=== PATIENT | female | born 1960 | race African-American/Black ===

== ENCOUNTER 2019-06-18 | Emergency (ER) | payer OTHER ==
[~2019-06-18] MED LIST: AMBIEN CR12.5 MG PO; BACTRIM DS1 TAB PO; BACTROBAN2 % EX; KLONOPIN1 MG PO; LOSARTAN POT100 MG PO; MAXZIDE-2537.5 MG/TA PO; MELOXICAM7.5 MG PO; MICARDIS HC1 PO; NEURONTIN300 MG PO; NICOTINE T21 MG/241 TD; NO MEDS; PREDNISONE20 MG PO; PROZAC20 M1 PO; SYMBICORT1 AE1 IN; VENTOLIN HFA IN; ZITHROMAX500 MG PO
[2019-06-18 01:34] LABS: HEMOGLOBIN 11.8 g/dl (12.0-16.0); IMMATURE GRANULOCYTES 0.2 % (0.0-5.0); MEAN CELL VOLUME 84.9 fL CALC (80.0-100.0); MEAN CORPUSCULAR HGB 27.8 pG CALC (26.0-32.0); MEAN CORPUSCULAR HGB CONC 32.7 g/L CALC (32.0-36.0); NEUT# 2.5 thou/uL (2.00-7.15); RED BLOOD COUNT 4.25 mill/uL (4.20-5.60); RED CELL DISTRI WIDTH 14.7 % (11.5-15.5)
[2019-06-18 01:35] LABS: HEMATOCRIT 36.1 % (37.0-47.0)
[2019-06-18 02:01] LABS: ALBUMIN 4.1 g/dL (3.2-5.0); AMYLASE 59 u/l (30-110); BUN 12 mg/dL (7-17); BUN/CREATININE RATIO 12 (12-20 (CALC)); CHLORIDE 107 mmol/l (95-108); GFR 57 ML/MIN (>=60 (CALC)); GFR FOR AFR.AMER. > 60 ML/MIN (>=60 (CALC)); LIPASE 80 u/l (23-300); POTASSIUM 3.9 mmol/l (3.5-5.1); SODIUM 140 mmol/l (137-146); TOTAL PROTEIN 7.6 g/dL (6.3-8.2)
[2019-06-18 02:04] LABS: ACT PARTIAL THROMBO TIME 26.1 SECONDS (20.0-32.5); D-DIMER 0.29 mg/L (0.19-0.60); PROTHROMBIN TIME 10.9 SECONDS (9.0-12.5)
[2019-06-18 02:06] LABS: ALKALINE PHOSPHATASE 123 u/l (38-126); ANION GAP 10 (6-22 (CALC)); BILIRUBIN, TOTAL 0.3 mg/dL (0.0-1.4); CARBON DIOXIDE 27 mmol/l (22-30); SGOT/AST 24 u/l (14-36)
[2019-06-18 02:13] LABS: MYOGLOBIN 80 ng/mL (0 - 62)
[2019-06-18 02:59] LABS: ETHYL ALCOHOL 0 mg/dl (0-30)
[2019-06-18 05:31] LABS: URINE BILIRUBIN - DIPSTICK NEGATIVE (NEGATIVE); URINE BLOOD DIPSTICK NEGATIVE (NEGATIVE); URINE COLOR YELLOW; URINE GLUCOSE - DIPSTICK NEGATIVE (NEGATIVE); URINE KETONE NEGATIVE (NEGATIVE); URINE LEUK ESTERASE NEGATIVE (NEGATIVE); URINE NITRITE - DIPSTICK NEGATIVE (Negative); URINE PH 6.5 (4.5-8.0); URINE PROTEIN - DIPSTICK NEGATIVE (NEG-TRACE); URINE UROBILINOGEN - DIPSTICK 0.2 E.U./dL (0.2)
[2019-06-18 05:34] LABS: COCAINE NEGATIVE (NEGATIVE); METHADONE NEGATIVE (NEGATIVE); TETRAHYDROCANNABIONOL NEGATIVE (NEGATIVE)
[2019-06-18 05:35] LABS: BARBITURATES NEGATIVE (NEGATIVE); OXCYCODONE POSITIVE (NEGATIVE); TRICYLIC ANTIDEPRESSANTS NEGATIVE (NEGATIVE)
[2019-06-23] MEDS ORDERED: MICARDIS40 MG PO (08:38)
== END 2019-06-18 06:06 | disposition designated cancer center or children's hospital (05) | DRG 313 ==
PROVIDERS: Family Medicine
DX: R07.9 Chest pain, unspecified (principal); R45.851 Suicidal ideations; F19.10 Other psychoactive substance abuse, uncomplicated; I10 Essential (primary) hypertension; F17.200 Nicotine dependence, unspecified, uncomplicated

== ENCOUNTER 2021-01-07 10:01 | Emergency (ER) | payer SELFPAY ==
[~2021-01-07] VITALS: Ht 149.9 cm; Wt 90.9 kg
[~2021-01-07 10:01] MED LIST changes: +MICARDIS40 MG PO
[2021-01-07 11:11] LABS: HEMATOCRIT 32.7 % (37.0-47.0); IMMATURE GRANULOCYTES 0.9 % (0.0-5.0); MEAN CORPUSCULAR HGB 28.3 pG CALC (26.0-32.0); MEAN CORPUSCULAR HGB CONC 30.6 g/dL CAL (32.0-36.0); NEUT# 9.1 thou/uL (2.00-7.15); RED BLOOD COUNT 3.53 mill/uL (4.20-5.60)
[2021-01-07 11:15] LABS: MEAN CELL VOLUME 92.6 fL CALC (80.0-100.0)
[2021-01-07 11:32] LABS: ALBUMIN 3.5 g/dL (3.2-5.0); ANION GAP 10 (6-22 (CALC)); BUN 13 mg/dL (8-23); BUN/CREATININE RATIO 13 (12-20 (CALC)); CARBON DIOXIDE 24 mmol/l (22-30); CHLORIDE 111 mmol/l (95-108); GFR 56 ML/MIN (>=60 (CALC)); GFR FOR AFR.AMER. > 60 ML/MIN (>=60 (CALC)); POTASSIUM 3.9 mmol/l (3.5-5.1); SODIUM 141 mmol/l (137-146); TOTAL PROTEIN 7.8 g/dL (6.3-8.2)
[2021-01-07 11:34] LABS: ALKALINE PHOSPHATASE 404 u/l (38-126); BILIRUBIN, TOTAL 0.8 mg/dL (0.0-1.4); SGOT/AST 127 u/l (9-36)
[2021-01-07 14:45] VITALS: BP 154/73
--- NOTE | 2021-01-09 07:32 | NUR ---
PRELIM BLOOD CX SHOWS GRAM POSITIVE COCCI IN 3/4 VIALS. PT WAS TRANSFERRED TO [facility]. REPORTED RESULTS TO PTS NURSE ALISON AND FAXED TO [phone]
== END 2021-01-07 15:00 | disposition short-term general hospital (02) | DRG 177 ==
LOC: ED 10:01
PROVIDERS: Family Medicine
PROC: 02HV33Z Insertion of Infusion Device into Superior Vena Cava, Percutaneous Approach (ICD-10-PCS; principal; 2021-01-07)
PROC: B518ZZA Fluoroscopy of Superior Vena Cava, Guidance (ICD-10-PCS; 2021-01-07)
DX: U07.1 COVID-19 (principal); J12.82 Pneumonia due to coronavirus disease 2019; R04.2 Hemoptysis; Z68.41 Body mass index [BMI] 40.0-44.9, adult; R74.01 Elevation of levels of liver transaminase levels; R91.8 Other nonspecific abnormal finding of lung field; I10 Essential (primary) hypertension; E66.9 Obesity, unspecified; F17.200 Nicotine dependence, unspecified, uncomplicated
CPT/HCPCS: Q9967

== ENCOUNTER 2022-06-26 14:14 | Emergency (ER) | payer OTHER ==
[2022-06-26] VITALS (10 sets, daily range): BP systolic 98–148; BP diastolic 51–86
[~2022-06-26] VITALS: Ht 149.9 cm; Wt 90.7 kg
[2022-06-26 14:58] LABS: BASO% 0.5 % (0-3); EOS% 1.7 % (0-8); HEMATOCRIT 40.2 % (37.0-47.0); IMMATURE GRANULOCYTES 0.3 % (0.0-5.0); LYMPH% 33.2 % (15-41); MEAN CORPUSCULAR HGB 27.1 pG CALC (26.0-32.0); MEAN CORPUSCULAR HGB CONC 31.8 g/dL CAL (32.0-36.0); MONO% 6.4 % (2-13); NEUT# 5.39 thou/uL (2.00-7.15); NEUT% 57.9 % (42-76); RED BLOOD COUNT 4.73 mill/uL (4.20-5.60); RED CELL DISTRI WIDTH 14.2 % (11.5-15.5)
[2022-06-26 15:00] LABS: HEMOGLOBIN 12.8 g/dl (12.0-16.0)
[2022-06-26 16:07] LABS: ALKALINE PHOSPHATASE 256 u/l (38-126); BILIRUBIN, TOTAL 0.5 mg/dL (0.02-1.3); BUN 18 mg/dL (8-23); BUN/CREATININE RATIO 15 (12-20 (CALC)); CHLORIDE 107 mmol/l (95-108); CREATININE 1.2 mg/dL (0.5-1.0); GFR FOR AFR.AMER. 55 ML/MIN (>=60 (CALC)); GFR OTHER RACES 45 ML/MIN (>=60 (CALC)); POTASSIUM 3.4 mmol/l (3.5-5.1); SGOT/AST 41 u/l (9-36); SODIUM 141 mmol/l (137-146)
[2022-06-26 16:11] LABS: ANION GAP 19 (6-22 (CALC)); CARBON DIOXIDE 18 mmol/l (22-30); TOTAL PROTEIN 10.1 g/dL (6.3-8.2)
[2022-06-26 17:35] LABS: URINE BILIRUBIN - DIPSTICK NEGATIVE (NEGATIVE); URINE BLOOD DIPSTICK NEGATIVE (NEGATIVE); URINE COLOR YELLOW; URINE GLUCOSE - DIPSTICK NEGATIVE (NEGATIVE); URINE KETONE NEGATIVE (NEGATIVE); URINE LEUK ESTERASE NEGATIVE (NEGATIVE); URINE PH 5.5 (4.5-8.0); URINE PROTEIN - DIPSTICK 100 mg/dL (NEG-TRACE); URINE SPECIFIC GRAVITY >=1.030; URINE UROBILINOGEN - DIPSTICK 0.2 E.U./dL (0.2)
[2022-06-26 17:40] LABS: URINE NITRITE - DIPSTICK NEGATIVE (Negative)
[2022-06-26 17:54] LABS: URINE AMORPH SEDIMENT FEW hpf (NONE-FEW); URINE RBC 0-2 RBC/hpf (0-5); URINE SQUAMOUS EPITHELIAL CELL FEW EPI/hpf (0-FEW); URINE WBC 0-2 WBC/hpf (0-5)
== END 2022-06-26 21:20 | disposition short-term general hospital (02) ==
LOC: ED 14:14
PROVIDERS: Family Medicine
DX: R56.9 Unspecified convulsions (principal); S01.311A Laceration without foreign body of right ear, initial encounter; I10 Essential (primary) hypertension; F32.A Depression, unspecified; X58.XXXA Exposure to other specified factors, initial encounter
CPT/HCPCS: J1953

== ENCOUNTER 2022-07-13 04:17 | Observation (INO) | payer OTHER ==
[2022-07-13] VITALS (34 sets, daily range): BP systolic 99–161; BP diastolic 32–105
[~2022-07-13] VITALS: Ht 149.9 cm; Wt 81.6 kg
--- NOTE | 2022-07-13 04:17 | NUR ---
PT ARRIVED VIA EMS IN ROOM 12 FOR TRIAGE. PT IS HYPERVERBAL, TALKING EXCESSIVELY AND IS NOT MAKING SENSE.
[2022-07-13 04:53] LABS: BASO% 0.5 % (0-3); EOS% 3.3 % (0-8); HEMATOCRIT 30.8 % (37.0-47.0); HEMOGLOBIN 9.9 g/dl (12.0-16.0); IMMATURE GRANULOCYTES 0.7 % (0.0-5.0); MEAN CELL VOLUME 85.1 fL CALC (80.0-100.0); MEAN CORPUSCULAR HGB 27.3 pG CALC (26.0-32.0); MEAN CORPUSCULAR HGB CONC 32.1 g/dL CAL (32.0-36.0); MONO% 10.1 % (2-13); NEUT# 4.45 thou/uL (2.00-7.15); NEUT% 48.4 % (42-76); RED BLOOD COUNT 3.62 mill/uL (4.20-5.60); RED CELL DISTRI WIDTH 13.9 % (11.5-15.5)
[2022-07-13 05:02] LABS: BUN 17 mg/dL (8-23); BUN/CREATININE RATIO 13 (12-20 (CALC)); CHLORIDE 106 mmol/l (95-108); CREATININE 1.3 mg/dL (0.5-1.0); GFR FOR AFR.AMER. 50 ML/MIN (>=60 (CALC)); GFR OTHER RACES 41 ML/MIN (>=60 (CALC)); SGOT/AST 36 u/l (9-36); SODIUM 140 mmol/l (137-146)
[2022-07-13 05:06] LABS: ALBUMIN 3.8 g/dL (3.2-5.0); ALKALINE PHOSPHATASE 121 u/l (38-126); ANION GAP 11 (6-22 (CALC)); CARBON DIOXIDE 28 mmol/l (22-30); POTASSIUM 4.8 mmol/l (3.5-5.1); TOTAL PROTEIN 7.4 g/dL (6.3-8.2)
--- NOTE | 2022-07-13 05:15 | NUR ---
PT IN ROOM TALKING TO HER SELF. PT IS LOUD AND MAKING INAPPROPRIATE STATEMENTS. HER DOOR IS CLOSED HOWEVER SHE IS HEARD OUTSIDE HER DOOR. VSS, NAD
--- NOTE | 2022-07-13 06:09 | NUR ---
PT IN ROOM LAYING ON HER SIDE. TALKING TO HERSELF AND IS LOUD. NO CONCERNS AT THIS TIME.
--- NOTE | 2022-07-13 11:02 | NUR ---
pt sleeping, no distress
--- NOTE | 2022-07-13 12:47 | NUR ---
pt resting no distress
[2022-07-13] MEDS ORDERED: LIPITOR20 MG PO (14:51)
[2022-07-13] MEDS ORDERED: AMLODIPINE BESYL5 MG PO (14:51)
[2022-07-13] MEDS ORDERED: HYDROXYZ HCL25 MG PO (14:52)
[2022-07-13] MEDS ORDERED: ZOLPIDEM10 MG PO (14:54)
[2022-07-13] MEDS ORDERED: ACYCLOVIR400 MG PO (14:54)
--- NOTE | 2022-07-13 15:06 | NUR ---
pt sleeping no distress
--- NOTE | 2022-07-13 16:37 | NUR ---
pt sleeping, no distress. report called to med surg, all questions anwsered at this time
--- NOTE | 2022-07-13 19:30 | NUR ---
PT RESTING IN BED WATCHING TV, NO SIGNS OF DISTRESS NOTED, RESP EVEN AND UNLABORED. PT ALERT AND ORIENTED X3, CONVERSING WITH PT NOTED SHE HAS FLIGHT OF IDEAS, FOURDRINIER MACHINE TENDER DOES NOT REQUIRE MUCH INTERACTION PT CONTINUES CONVERSING ABOUT WORK, SCHOOL, FAMILY, RETIRMENT, GRANDKIDS, IDENTITY THEFT, RECENT HOSPITALIZATION. PT STATES SHE IS "WITHDRAWING" FROM TAKING HER KLONOPIN. UNABLE TO UNDERSTAND PT TIMELINE. PT STATES SHE WAS AT [facility] LAST MONTH FOR A SEIZURE BUT PT STATES SHE NEVER HAD A SEIZURE. MD NOTIFIED OF PT REQUESTS TO CONTINUE HOME MEDICATIONS. DISCUSSED WITH PT, VERBALIZED UNDERSTANDING. BED ALARM FOR SAFETY, IV FLUSHED WELL. ASSESSEMNT COMPLETED, CALL LIGHT IN REACH,CONTINUE TO MONITOR.
--- NOTE | 2022-07-13 21:10 | NUR ---
PT RESTING IN BED, MEDICATED PER MAR, NO SIGNS OF DISTRESS NOTED, RESP EVEN AND UNLABORED. CALL LIGHT IN REACH, CONTINUE TO MONITOR.
--- NOTE | 2022-07-14 | NUR ---
PT RESTING IN BED WITH EYES CLOSED, NO SIGNS OF DISTRESS NOTED, RESP EVEN AND UNLABORED. CALL LIGHT IN REACH,CONTINUE TO MONITOR.
[2022-07-14 00:23] VITALS: BP 119/54
--- NOTE | 2022-07-14 04:00 | NUR ---
PT RESTING IN BED WITH EYES CLOSED, NO SIGNS OF DISTRESS NOTED, RESP EVEN AND UNLABORED. CALL LIGHT IN REACH,CONTINUE TO MONITOR.
[2022-07-14 04:59] VITALS: BP 156/48
[2022-07-14 06:08] LABS: CHOLESTEROL HDL RATIO 2.7 (<4.4 (CALC)); MAGNESIUM 1.9 mg/dL (1.6-2.3)
[2022-07-14 06:51] VITALS: BP 145/66
[2022-07-14] MEDS ORDERED: TAM75CAP PO (16:11)
--- NOTE | 2022-07-14 18:03 | NUR ---
PT TELE MONITOR AND IV REMOVED.PT DISCHARED WITH INSTRUCTIONS AND BELONGINGS.
== END 2022-07-14 17:49 | disposition home or self-care (01) ==
LOC: ED 04:17 → ED-I 08:05 → ED 08:16 → MS2 08:17 → ED-I 08:17 → MS2 15:52
PROVIDERS: Emergency Medicine; ADMIT Internal Medicine; ATTEND Internal Medicine
DX: R07.9 Chest pain, unspecified (principal); J10.1 Influenza due to other identified influenza virus with other respiratory manifestations; F31.9 Bipolar disorder, unspecified; I10 Essential (primary) hypertension; E66.9 Obesity, unspecified; D64.9 Anemia, unspecified; F17.200 Nicotine dependence, unspecified, uncomplicated; Z20.822 Contact with and (suspected) exposure to COVID-19
CPT/HCPCS: J1650

== ENCOUNTER 2022-07-21 21:22 | Emergency (ER) | payer OTHER ==
[~2022-07-21] VITALS: Ht 149.9 cm; Wt 97.0 kg
[~2022-07-21 21:22] MED LIST changes: +ACYCLOVIR400 MG PO; +AMLODIPINE BESYL5 MG PO; +HYDROXYZ HCL25 MG PO; +LIPITOR20 MG PO; +TAM75CAP PO; +ZOLPIDEM10 MG PO
[2022-07-21 22:14] LABS: URINE BLOOD DIPSTICK NEGATIVE (NEGATIVE); URINE COLOR YELLOW; URINE GLUCOSE - DIPSTICK NEGATIVE (NEGATIVE); URINE KETONE TRACE mg/dL (NEGATIVE); URINE LEUK ESTERASE NEGATIVE (NEGATIVE); URINE PROTEIN - DIPSTICK TRACE mg/dL (NEG-TRACE); URINE SPECIFIC GRAVITY 1.025; URINE UROBILINOGEN - DIPSTICK 0.2 E.U./dL (0.2)
[2022-07-21 22:16] LABS: BASO% 0.4 % (0-3); HEMATOCRIT 33.1 % (37.0-47.0); HEMOGLOBIN 10.5 g/dl (12.0-16.0); IMMATURE GRANULOCYTES 0.1 % (0.0-5.0); LYMPH% 34.6 % (15-41); MEAN CELL VOLUME 87.1 fL CALC (80.0-100.0); MEAN CORPUSCULAR HGB 27.6 pG CALC (26.0-32.0); MEAN CORPUSCULAR HGB CONC 31.7 g/dL CAL (32.0-36.0); MONO% 7.6 % (2-13); NEUT# 4.29 thou/uL (2.00-7.15); NEUT% 54.3 % (42-76); RED BLOOD COUNT 3.8 mill/uL (4.20-5.60)
[2022-07-21 22:18] LABS: URINE BILIRUBIN - DIPSTICK SMALL (NEGATIVE); URINE NITRITE - DIPSTICK NEGATIVE (Negative)
[2022-07-21 22:26] LABS: ALBUMIN 4.4 g/dL (3.2-5.0); BUN 12 mg/dL (8-23); BUN/CREATININE RATIO 10 (12-20 (CALC)); CHLORIDE 110 mmol/l (95-108); CREATININE 1.1 mg/dL (0.5-1.0); ETHYL ALCOHOL 0 mg/dl (0-30); GFR FOR AFR.AMER. > 60 ML/MIN (>=60 (CALC)); GFR OTHER RACES 50 ML/MIN (>=60 (CALC)); SGOT/AST 63 u/l (9-36); SODIUM 140 mmol/l (137-146); TOTAL PROTEIN 8.2 g/dL (6.3-8.2)
[2022-07-21 22:31] LABS: ALKALINE PHOSPHATASE 257 u/l (38-126); ANION GAP 15 (6-22 (CALC)); BILIRUBIN, TOTAL 0.8 mg/dL (0.02-1.3); CARBON DIOXIDE 19 mmol/l (22-30); POTASSIUM 3.5 mmol/l (3.5-5.1)
[2022-07-22] VITALS (17 sets, daily range): BP systolic 86–146; BP diastolic 50–88
[2022-07-22] MEDS ORDERED: TAM75CAP PO (05:55)
== END 2022-07-22 08:48 | disposition home or self-care (01) | DRG 897 ==
LOC: ED 21:22
PROVIDERS: Emergency Medicine
DX: F19.10 Other psychoactive substance abuse, uncomplicated (principal); F31.9 Bipolar disorder, unspecified; R74.8 Abnormal levels of other serum enzymes; J11.1 Influenza due to unidentified influenza virus with other respiratory manifestations; I10 Essential (primary) hypertension; Z20.822 Contact with and (suspected) exposure to COVID-19
CPT/HCPCS: J2060; S0166

== ENCOUNTER 2022-07-23 08:06 | Emergency (ER) | payer OTHER ==
[2022-07-23] VITALS (30 sets, daily range): BP systolic 109–181; BP diastolic 67–109
[~2022-07-23] VITALS: Ht 149.9 cm; Wt 97.0 kg
[2022-07-23 08:43] LABS: BASO% 0.4 % (0-3); EOS% 1.5 % (0-8); HEMATOCRIT 32.1 % (37.0-47.0); IMMATURE GRANULOCYTES 0.2 % (0.0-5.0); LYMPH% 24.2 % (15-41); MEAN CELL VOLUME 87.7 fL CALC (80.0-100.0); MEAN CORPUSCULAR HGB 27.3 pG CALC (26.0-32.0); MEAN CORPUSCULAR HGB CONC 31.2 g/dL CAL (32.0-36.0); MONO% 5.9 % (2-13); NEUT# 6.67 thou/uL (2.00-7.15); NEUT% 67.8 % (42-76); RED BLOOD COUNT 3.66 mill/uL (4.20-5.60); RED CELL DISTRI WIDTH 15.3 % (11.5-15.5)
[2022-07-23 08:52] LABS: ALBUMIN 4.2 g/dL (3.2-5.0); ALKALINE PHOSPHATASE 299 u/l (38-126); ANION GAP 18 (6-22 (CALC)); BUN 19 mg/dL (8-23); BUN/CREATININE RATIO 15 (12-20 (CALC)); CARBON DIOXIDE 19 mmol/l (22-30); CHLORIDE 110 mmol/l (95-108); CREATININE 1.3 mg/dL (0.5-1.0); ETHYL ALCOHOL 0 mg/dl (0-30); GFR FOR AFR.AMER. 50 ML/MIN (>=60 (CALC)); GFR OTHER RACES 41 ML/MIN (>=60 (CALC)); POTASSIUM 3.8 mmol/l (3.5-5.1); SGOT/AST 85 u/l (9-36); SODIUM 143 mmol/l (137-146); TOTAL PROTEIN 7.6 g/dL (6.3-8.2)
[2022-07-23 08:57] LABS: BILIRUBIN, TOTAL 0.3 mg/dL (0.02-1.3)
[2022-07-23 09:55] LABS: URINE BILIRUBIN - DIPSTICK NEGATIVE (NEGATIVE); URINE BLOOD DIPSTICK NEGATIVE (NEGATIVE); URINE COLOR YELLOW; URINE GLUCOSE - DIPSTICK NEGATIVE (NEGATIVE); URINE KETONE TRACE mg/dL (NEGATIVE); URINE LEUK ESTERASE NEGATIVE (NEGATIVE); URINE PH 6.5 (4.5-8.0); URINE PROTEIN - DIPSTICK NEGATIVE (NEG-TRACE); URINE SPECIFIC GRAVITY 1.015; URINE UROBILINOGEN - DIPSTICK 0.2 E.U./dL (0.2)
[2022-07-23 09:57] LABS: URINE NITRITE - DIPSTICK NEGATIVE (Negative)
== END 2022-07-23 17:11 | DRG 885 ==
LOC: ED 08:06
PROVIDERS: Family Medicine
DX: F22 Delusional disorders (principal); I10 Essential (primary) hypertension; Z78.1 Physical restraint status
CPT/HCPCS: J2060

== ENCOUNTER 2023-11-08 23:46 | Inpatient (IN) | payer MEDICARE ==
[~2023-11-08] VITALS: Ht 149.9 cm; Wt 96.1 kg
[~2023-11-08 23:46] MED LIST changes: +KLONOPIN0.5 MG PO; -KLONOPIN1 MG PO; +LATUDA40 MG PO; -MICARDIS40 MG PO; +PROZAC10 MG PO; -PROZAC20 M1 PO; +VENTOLIN HFA108 MCG IN
[2023-11-08 23:53] VITALS: BP 169/94
[2023-11-09] VITALS (59 sets, daily range): BP systolic 136–203; BP diastolic 69–111
[2023-11-09 00:22] LABS: BASO% 0.4 % (0-3); EOS% 0.6 % (0-8); HEMATOCRIT 43.4 % (37.0-47.0); IMMATURE GRANULOCYTES 0.7 % (0.0-5.0); MEAN CELL VOLUME 86.8 fL CALC (80.0-100.0); MEAN CORPUSCULAR HGB 28.2 pG CALC (26.0-32.0); MEAN CORPUSCULAR HGB CONC 32.5 g/dL CAL (32.0-36.0); MONO% 6.1 % (2-13); NEUT# 5.97 thou/uL (2.00-7.15); NEUT% 66.2 % (42-76)
[2023-11-09 00:28] LABS: HEMOGLOBIN 14.1 g/dl (12.0-16.0)
[2023-11-09 00:51] LABS: ALKALINE PHOSPHATASE 241 u/l (38-126); BILIRUBIN, TOTAL 0.7 mg/dL (0.02-1.3); BUN 16 mg/dL (8-23); BUN/CREATININE RATIO 14 (12-20 (CALC)); CARBON DIOXIDE 24 mmol/l (22-30); CHLORIDE 106 mmol/l (95-108); CREATININE 1.2 mg/dL (0.5-1.0); ESTIMATED GFR 51 ML/MIN (>=90 (CALC)); LIPASE 426 u/l (23-300); SODIUM 141 mmol/l (137-146); TOTAL PROTEIN 9.7 g/dL (6.3-8.2)
[2023-11-09 00:54] LABS: ALBUMIN 4.9 g/dL (3.2-5.0); ANION GAP 14 (6-22 (CALC)); POTASSIUM 3.3 mmol/l (3.5-5.1); SGOT/AST 54 u/l (9-36)
--- NOTE | 2023-11-09 01:35 | NUR ---
@2349- PT ARRIVES TO RM#8 VIA EMS, EMS REPORTS PT HESITANT TO SPEAK, STROKE ASSESSMENT NEGATIVE FOR THEM, STATES REPORTED CALL FOR HTN/DIZZINESS. INTERNAL AUDIT SENIOR MANAGER AT BEDSIDE FOR ASSESSMENT OF PT, PT NOTED WITH SEVERE ASPHASIA AND AMS, EMS UNABLE TO VERBALIZEPT BASELINE/LKW, PT VOICESDIZZINESS/HEADACHE AT THIS TIME, PT IS POOR HISTORIAN. @2353- CVA PROTOCOL INITIATED DUE TO PT AMS, COMPLAINTS AND SEVERE ASPHASIA WITH GENERALIZED WEAKNESS. INTERNAL AUDIT SENIOR MANAGER TRANSPORTED PT TO CT AT THIS TIME PER CVA PROTOCOL. @0005- PT CMP CT BRAIN W/O CONTRAST, TELENUEROLOGIST CONNECTED WITH PT AT THIS TIME, PT REMAINS WITH SEVERE ASPHASIA AND GENERALIZED WEAKNESS, PT A&OX 1 AT THIS TIME TO SELF, PT WAS UNABLE TO IDENTIFY SITUATION, TIME, AND PLACE, PT ALSO UNABLE TO IDENTIFY OBJECTS. PT IS POOR HISTORIAN, LKW UNOBTAINABLE. @0010- TELENUROLOGIST COMPLETE, VOICES WILL SPEAK TO ED MD. @0012- LABS OBTAINED, INTERNAL AUDIT SENIOR MANAGER/ADDITIONAL STAFF ATTEMPTING IV PLACEMENT AT THIS TIME. @0059- ED MD NOTIFIED DUE TO SEVERAL STAFF ATTEMPTING IV WITHOUT SUCCESS, CTA NOT PERFORMED, MD VERBALIZES TO RETURN PT AND WILL ATTEMPT PLACEMENT ONCE RETURNED. @0100- PT RETURNED FROM CT, PT UPDATED ON CONTINUOUS PLAN OF CARE JILLIAN CONTINUAL REASSESSMENTS, PT REMAINS WITH ASPHASIA AND GENERALIZED BILATERAL LEG WEAKNESS. @0113- ER MD AT BEDSIDE FOR INITIAL EVALUATION, PT VERBALIZES TO MD SITUATIONOF "I THOUGHT I WAS HAVING A STROKE, MY B/P WAS HIGH, AND I WAS HAVING NUMBNESS TO (R) SIDE OF MY FACE." PT REASSESSED, PT UNABLE TO IDENTIFY OBJECTS AND ANSWER STAFF, ASPHASIA REMAINS, PT NOTED WITH BILATERAL LEG WEAKNESS. EKG COLLECTED, WILL OBTAIN URINE SPECIMEN AT THIS TIME. @0120- URINE COLLECTED VIA STRAIGHT CATH, PT REMAINS WITH ASPHASIA AND BILATERAL LEG WEAKNESS. AWAITING MD FOR PLACEMENT OF ACCES FOR CTA SCANS, RADIOLOGY AWARE. @0135- MD AT BEDSIDE FOR ATTEMPT OF ACCESS, ADDITIONAL STAFF AT BEDSIDE, AWAITING ALL FURTHER ORDERS AND CTA SCANS. PT DEFECITS REMAIN STATED
[2023-11-09 01:36] LABS: URINE BLOOD DIPSTICK Negative (NEGATIVE); URINE CLARITY Clear; URINE GLUCOSE - DIPSTICK Negative (NEGATIVE); URINE KETONE 15 mg/dL (NEGATIVE); URINE LEUK ESTERASE Negative (Negative); URINE NITRITE - DIPSTICK Negative (Negative); URINE PH 5.5 (4.5-8.0); URINE PROTEIN - DIPSTICK 100 mg/dL (NEG-TRACE); URINE SPECIFIC GRAVITY 1.025; URINE UROBILINOGEN - DIPSTICK 0.2 E.U./dL (0.2)
[2023-11-09 01:46] LABS: ETHYL ALCOHOL 0 mg/dl (0-30)
[2023-11-09 01:52] LABS: URINE COLOR Yellow
[2023-11-09 02:04] LABS: URINE RBC 0-2 RBC/hpf (0-5); URINE SQUAMOUS EPITHELIAL CELL FEW EPI/hpf (0-FEW); URINE WBC 0-2 WBC/hpf (0-5)
--- NOTE | 2023-11-09 02:25 | NUR ---
VERBALIZES CENTRAL LINE SET UP AT THIS TIME, AFTER UNSUCCESSFUL IV ATTEMPTS BY WITH U/S.
--- NOTE | 2023-11-09 02:40 | NUR ---
AT BEDSIDE FOR CENTRAL LINE PLACEMENT AT THIS TIME, ADDITIONAL STAFF AT BEDSIDE.
--- NOTE | 2023-11-09 03:25 | NUR ---
CENTRAL LINE PLACED AT THIS TIME. CXR AT THIS TIME FOR CONFIRMATION, RADIOLOGY AT BEDSIDE.
--- NOTE | 2023-11-09 03:44 | NUR ---
PT RESTING IN BED FOWLERS POSITION. PT UPDATED ON PLAN OF CARE, AWAITING FURTHER RESULTS/ORDERS AT THIS TIME. APPLIED WARM BLANKET ON PT, LIGHTS DIMMED FOR COMFORT. PT VERBALIZES NO NEEDS AT THIS TIME. PT CALL LIGHT WITHIN REACH, NAD NOTED.
--- NOTE | 2023-11-09 05:00 | NUR ---
PT REASSESED AT THIS TIME. PT ALERT AND ORIENTED TO PLACE, SELF, TIME, AND SITUATION AT THIS TIME. PT CONTINUES WITH MODERATE APHASIA AND HESITANCY WITH SPEECH. PT NOTED WITH BILATERAL LEG WEAKNESS WITH NO EFFORT AGAINST GRAVITY. PT NOW C/O (R) ARM SENSORY DEFICIT. MD AWARE OF PT STATUS. PT CONTINUES WITH HTN. PT AWAITING CXR RESULTS AT THIS TIME FOR CONFIRMATION OF LINE PLACEMENT IN ORDER TO OBTAIN CTA, RADIOLOGY CONTINUALLY NOTIFIED DUE TO DELAY IN PT CARE. COMFORT MEASURES IN PLACE, WILL CONTINUE TO MONITOR.
--- NOTE | 2023-11-09 05:34 | NUR ---
OPTICAL EFFECTS LINE UP PERSON NOTIFIED OF PHONE CALL FROM TELENUROLOGIST ALBERT DUE TO DELAY IN PT CARE REGARDING CTA/CT RESULTS, DISCUSSED DELAY IN EMERGENCE RADIOLOGY AND PT TRANSPORTED TO CT FOR CTA AT THIS TIME, VOICES HE WILL RE-CONTACT FOR ALL RESULTS FOR FURTHER PLAN OF CARE.
--- NOTE | 2023-11-09 06:30 | NUR ---
PT REASSESSED AT THIS TIME, PT CONTINUES WITH MODERATE APHASIA, SPEECH IS NOTED WITH LESS DELAY, PT REMAINS ALERT AND ORIENTED X4, PT SHOWS IMPROVEMENT IN LOWER EXTREMITIES, NOTED ON NIHSS. PT UPDATED ON CONTINUOUS PLAN OF CARE. VSS, WILL CONTINUE TO MONITOR, AWAITING FOR CTA RESULTS AT THIS TIME.
--- NOTE | 2023-11-09 07:00 | NUR ---
PT REPIORT RECIEVED FROM CELL LEAD NURSE. BEDSIDE NIH COMPLETED AND DOCUMENTED ACCORDINGLY. PT IS ALERT AND ORIENTED X 4, YET PT DOES NOT ANSWER SOME QUESTIONS AND CANNOT FOLLOW SOME COMMANDS. PT WAS UNABLE TO LIFT HER LEFT LEG WHILE DOING NIH, PT WAS ABLE TO LIFT HER RIGHT LEG WITH NO ISSUES. WHILE TESTING SENSORY PT WOULD NOT LET NURSE KNOW IF SENSATION FELT THE SAME. A PINCH TEST WAS PERFORMED. WHEN ALL AREAS OF SKIN WAS PINCHED BY THIS NURSE PT HAD THE SAME REACTION AND PULLED AWAY. WHEN THIS NURSE PINCHED PTS LEFT LEG SHE WAS ABLE TO LIFT IT.
[2023-11-09] MEDS ORDERED: ASPIRIN 81 MG/TAB PO ONE (07:10)
[2023-11-09] MEDS ORDERED: cefTRIAXone SODIUM 2 GM in SODIUM CHLORIDE 0.9% 100 ML IV ONE (07:25)
[2023-11-09] MEDS ORDERED: OSELTAMIVIR PHOSPHATE 75 MG/TAB CAP PO ONE (08:25)
--- NOTE | 2023-11-09 08:31 | NUR ---
DR. LING NEUROLOGIST IN TO SEE PATIENT AT BEDSIDE.
[2023-11-09] MEDS ORDERED: MAGNESIUM HYDROXIDE 30 ML UDC PO PRN (08:45)
[2023-11-09] MEDS ORDERED: ACETAMINOPHEN 325 MG/TAB PO PRN (08:45)
[2023-11-09] MEDS ORDERED: SODIUM CHLORIDE 0.9% 1,000 ML IV PRN (08:45)
--- NOTE | 2023-11-09 09:00 | NUR ---
PT HAS REFUSED TO ALLOW THIS NURSE TO PLACE A BRIEF, PT SWATTED AT THIS NURSES HAND AND STATES "NO:.
--- NOTE | 2023-11-09 09:05 | NUR ---
PT HAS PASSED DYSPHAGIA SCREENING. PT MEDIACTAED WITH PO TAMIFLU. PT TOOK 20 MINUTED TO SWALLOW PILL. PT WOULD DRINK WATER AND HOLD PILL IN HER MOUTH. THIS NURSE ATTEMPTED TO EXPLAIN TO PT TO SWALLOW PILL. PT WAS UNABLE TO COMPREHEND WHAT THIS NURSE WAS EXPLAING.PT REFUSED TO SPIT THE PILL OUT. PT WAS ABLE TO SWALLOW PILL BY THIS NURSE POORING IN HER MOUTH.
--- NOTE | 2023-11-09 09:23 | NUR ---
[facility]
[2023-11-09] MEDS ORDERED: ASPIRIN EC 81 MG/TAB PO SCH (10:00)
[2023-11-09] MEDS ORDERED: amLODIPine BESYLATE 5 MG/TAB PO SCH (10:30)
--- NOTE | 2023-11-09 10:45 | NUR ---
ATTEMPT TO CALL REPORT TO ICU. NURSE REPORTS WILL CALL BACK. THIS NURSE STATES UNDERSTANDING.
[2023-11-09] MEDS ORDERED: TRAZODONE50 MG PO (10:52)
[2023-11-09] MEDS ORDERED: CYMBALTA30 MG PO (10:52)
--- NOTE | 2023-11-09 11:00 | NUR ---
NEREIDA CALLED AND GIVEN TO MITRA IN ICU.
--- NOTE | 2023-11-09 11:30 | NUR ---
THAI FRUIT I FARMWORKER ROUNDING ON ICU WITH PATIENT CONTACTED CONCERING PT BEIONG UNABLE TO SWALLOW PILLS. PT HAS MEDICATIONS ORDERED. THIS NURSE WILL NOT BE ADMINISTERING. THAI STATES AGREEANCE.
[2023-11-09] MEDS ORDERED: LABETALOL HCL 20 MG/ 4 ML CARTRG IV PRN (11:55)
[2023-11-09] MEDS ORDERED: hydrALAZINE HCL 20 MG/ML VIAL(1 ML) IV PRN (11:55)
--- NOTE | 2023-11-09 12:24 | NUR ---
REASSESSMNET OF PATIENT PERFORMED, PT REPORTS FEELING NUMNESS TO HER FACE BUT CANNOT IDENTIFY WHERE
--- NOTE | 2023-11-09 12:44 | NUR ---
THIS NURSE HAS ATTEMPTED TO CALL NEXT OF KIN ON FILE TO [place] SCREENING QUESTIONS PRIOR TO PT HAVING MRI DONE. NEXT OF KINS LINE IS OUT OF SERVICE. PT IS A POOR HISTORIAN AND IS UNABLE TO ANSWER QUESTIONS HERSLEF.
--- NOTE | 2023-11-09 13:30 | NUR ---
PT BEING TRANPORT TO ICU BY ROBYN WILKINSON.
--- NOTE | 2023-11-09 14:00 | NUR ---
PT BROUGHT TO ICU FROM ED VIA HOSPITAL BED. PT ADMITTED FOR POSSIBLE CVA/ AMS AND IS FLU B POSITIVE. PT IS ALERT. UNABLE TO DETERMINE IF PT IS ORIENTED DUE TO PT UNCOOPERATION RESPONDING TO STAFF'S QUESTIONS. PT DOES MAKE EYE CONTACT WHEN HER NAME IS SPOKEN. WHEN PERFORMING BEDSIDE NIHHS PT SCORED 10. PT ONLY ANSWERING QUESTIONS SPORADICALLY. WHEN ASKED WHY SHE WILL NOT ANSWER QUESTIONS SHE STATED SHE FELT LIKE SHE WAS HAVING A STROKE AND THAT'S WHY SHE CAN'T TALK. PT WOULD NOT ANSWER WHEN ASKED ABOUT SENSATION, BUT HAD POSITIVE BABINSKI REFLEXES ON BILATERAL FEET. PT HAD MINIMAL DRIFT IN RIGHT UPPER ARM; RIGHT LEG DRIFT DOWN TO BED WITH MINIMAL EFFORT AGAINST GRAVITY, AND LEFT LEG NO EFFORT AGAINST GRAVITY. LUNGS DIMINISHED; PT IS ON RA. NO COUGH OR SOB NOTED. PT IS SINUS TACH LOW 100'S ON MONITOR. BS ACTIVE. ABDOMEN SOFT. PULSES STRONG ALL EXTREMETIES. CALL LIGHT IN REACH. BED ALARM ACTIVE. VSS.
--- NOTE | 2023-11-09 14:41 | NUR ---
PT AT BEDSIDE TO WORK WITH PT. PT STATED THAT PT WOULD NOT ANSWER QUESTIONS UNTIL ASKED ABOUT HER NAILS, AND THEN PT BEGAN TALKING ABOUT HER NAILS.
--- NOTE | 2023-11-09 16:30 | NUR ---
NO CHANGES TO PT STATUS. PT STILL ANSWERS CERTAIN QUESTIONS ONLY. CALL LIGHT IN REACH. VSS.
[2023-11-09] MEDS ORDERED: ATORVASTATIN CALCIUM 20 MG/TAB PO SCH (17:00)
--- NOTE | 2023-11-09 18:15 | NUR ---
BEDSIDE NIH PERFORMED AGAIN. PT INITIALLY MORE COOPERATIVE IN ANSWERING QUESTIONS, AND ORIENTED TO PERSON/PLACE. PT FOLLOWS FINGERS WITH EYES IF REMINDED TO DO SO BUT WILL NOT COOPERATE WITH PERIPHERAL VISION. PT WILL NOT LIFT ARMS OR HANDS; WILL NOT SQUEEZE HANDS. WHEN ARMS LIFTED FOR PT AND TOLD TO HOLD THEM UP SHE WILL DO SO WITHOUT DRIFT ON THE RIGHT AND WITH MINOR DRIFT ON LEFT. LOWER EXTREMETIES SHE WILL NOT MOVE, UNTIL BABINSKI CHECKED AND THEN SHE BENDS BOTH LEGS UP QUICKLY. RIGHT LEG DRIFT DOES NOT HIT BED; LEFT LEG NO EFFORT AGAINST GRAVITY. PT IDENTIFIED OBJECTS CORRECTLY DURING BEGINNING OF EXAM BUT TOWARDS THE END OF EXAM WOULD NOT SPEAK. PT REMINDED OF CALL LIGHT. VSS.
[2023-11-09] MEDS ORDERED: ENOXAPARIN SODIUM 40 MG/0.4 ML SYR SC SCH (21:00)
[2023-11-09] MEDS ORDERED: OSELTAMIVIR PHOSPHATE 30 MG/CAP PO SCH (21:00)
--- NOTE | 2023-11-09 21:47 | NUR ---
recieve report from the ongoing nurse. Pt is Alert but non response to any question. Med was given per mar order. pt bp was 170/111 with hr 115. 5mg of labetalol was given. pt bp is 126/69 with hr 85. call light and personal item with reach. plan of care is continue.
[2023-11-10] VITALS (45 sets, daily range): BP systolic 133–175; BP diastolic 73–101
--- NOTE | 2023-11-10 01:03 | NUR ---
Pt is resting with eye close. pt show no sign of distress. pt hr is 113. call light and personal item within reach. plan of care is ongoing.
[2023-11-10 04:37] LABS: BASO% 0.3 % (0-3); EOS% 0.1 % (0-8); HEMATOCRIT 37.1 % (37.0-47.0); HEMOGLOBIN 12.4 g/dl (12.0-16.0); IMMATURE GRANULOCYTES 0.1 % (0.0-5.0); LYMPH% 19.7 % (15-41); MEAN CELL VOLUME 85.1 fL CALC (80.0-100.0); MEAN CORPUSCULAR HGB 28.4 pG CALC (26.0-32.0); MEAN CORPUSCULAR HGB CONC 33.4 g/dL CAL (32.0-36.0); MONO% 6.6 % (2-13); NEUT# 7.57 thou/uL (2.00-7.15); NEUT% 73.2 % (42-76); RED BLOOD COUNT 4.36 mill/uL (4.20-5.60); RED CELL DISTRI WIDTH 14.3 % (11.5-15.5)
[2023-11-10 04:52] LABS: ALBUMIN 4.1 g/dL (3.2-5.0); BILIRUBIN, TOTAL 0.7 mg/dL (0.02-1.3); CREATININE 1.1 mg/dL (0.5-1.0); MAGNESIUM 1.8 mg/dL (1.6-2.3); POTASSIUM 3.7 mmol/l (3.5-5.1); TOTAL PROTEIN 7.8 g/dL (6.3-8.2)
[2023-11-10] MEDS ORDERED: clonazePAM 0.5 MG/TAB PO PRN (05:50)
--- NOTE | 2023-11-10 07:50 | NUR ---
REPORT RECEIVED FROM NIGHT RN. PT CONTINUED TO REFUSE TO SPEAK TO NIGHT NURSE, BUT WHEN RT ENTERED ROOM HAD A FULL CONVERSATION. DR. BRANDT AT BEDSIDE THIS MORNING. PT CONVERSING WITH DR. BRANDT, ANSWERING MOST QUESTIONS APPROPRIATELY BUT DOES MAKE SOUNDS AND SCREAM OUT. PT DID TELL DR. BRANDT THAT SHE TOOK TOO MUCH PERKISET AT HOME. BEDSIDE NIH PERFORMED; PT SCORED A 10. SOMETIMES FOLLOWING COMMANDS. MOVES ARMS MINIMALLY UNTIL LIFTED FOR HER AND TOLD TO KEEP THEM UP, THEN NO DRIFT. PT'S R LEG DRIFTS DOWN TO BED, L LEG NO DRIFT. PT WILL NOT MOVE LEGS UNLESS BABINSKI CHECKED. LUNGS DIMINISHED. PT ON RA. NO COUGH OR SOB NOTED. NSR/ST ON MONITOR. BS ACTIVE/ PURWIK IN PLACE. PULSES STRONG ALL EXTREMETIES. SKIN W/D/I. AFEBRILE. PT ANSWERED NAME, PLACE, YEAR, NOT MONTH. CALL LIGHT IN REACH. VSS.
--- NOTE | 2023-11-10 08:15 | NUR ---
PT REFUSING TO FEED SELF. FED A FEW BITES OF APPLESAUCE AND GRITS BEFORE DECLINING ANYTHING ELSE TO EAT.
--- NOTE | 2023-11-10 08:22 | NUR ---
PT AT BEDSIDE TO WORK WITH PT.
--- NOTE | 2023-11-10 08:45 | NUR ---
PT HAD DIFFICULTY SWALLOWING CAPSULE PO MEDS. NO COUGHING NOTED, BUT PT HAD TROUBLE GETTING PILLS TO BACK OF THROAT. PT CALLING OUT SPORADICALLY, AND WHEN ASKED WHY SHE REPORTED AUDITORY AND TACTILE HALLUCINATIONS.
--- NOTE | 2023-11-10 08:56 | NUR ---
SPOKE WITH TELE-PSYCH DOCTOR ON THE PHONE REGARDING PT CONDITION.
[2023-11-10] MEDS ORDERED: DULOXETINE HCl 30 MG/CAP PO SCH (09:00)
--- NOTE | 2023-11-10 09:55 | NUR ---
SLT AT BEDSIDE TO ASSESS PT.
--- NOTE | 2023-11-10 11:30 | NUR ---
PT CHANGED AND REPOSITIONED. NO CHANGES TO STATUS. SPEECH REMAINS SELECTIVE AND IS SOMETIMES REPETATIVE. PT STILL REPORTING VISUAL, AUDITORY, AND TACTILE HALLUCINATIONS BUT DENIES ANY THOUGHTS OF SUICIDE OR SELF HARM.
--- NOTE | 2023-11-10 12:20 | NUR ---
TELE-NEUROLOGY CONSULT COMPLETED.
--- NOTE | 2023-11-10 12:35 | NUR ---
PT TAKEN TO MRI BY HOSPITAL BED. PT A/O AND ABLE TO CONSENT AND ANSWER QUESTIONS FOR INSIGHT DIRECTOR.
--- NOTE | 2023-11-10 14:00 | NUR ---
NO CHANGES TO PT STATUS. PT REPOSITIONED IN BED. DENIES WANTING TO WATCH TV, DENIES ANY OTHER NEEDS. CALL LIGHT IN REACH. VSS.
--- NOTE | 2023-11-10 16:00 | NUR ---
PT ASLEEP IN BED. VSS.
--- NOTE | 2023-11-10 18:15 | NUR ---
APPROXIMATELY 1807 PT NOTED TO HAVE FOAM COMING OUT OF HER MOUTH. AFTER RUNNING TO PT, HER GAZE WAS SOMEWHAT GLASSY. CODE CALLED AT 1807. RT AT BEDSIDE. PT SUCTIONED. WITHIN APPROXIMATELY 20 SECONDS PT REGAINED FOCUS AND WAS ABLE TO COMMUNICATE TO STAFF. JEFF VANEGAS CANCELLED AT 1809. PT'S HR IN 130'S, O2SAT NEVER DROPPED BELOW 90%. DR. BRANDT WAS NOTIFIED. STAT NEURO CONSULT PLACED. PT STABLE AT THIS TIME. SEIZURE PRECAUTIONS IN PLACE.
--- NOTE | 2023-11-10 18:45 | NUR ---
STAT TELE-NEURO CONSULT COMPLETE. PT REMAINS STABLE. NU FURTHER EPISODES OR CONCERNS. HR 99, BP 148/88.
--- NOTE | 2023-11-10 20:00 | NUR ---
BEDSIDE SHIFT REPORT COMPLETED. ALERT ORIENTED TO PERSON PLACE TIME. FOLLOWS SIMPLE COMMANDS. DENIES PAIN OR DISCOMFORT AT CURRENT TIME.
[2023-11-11] VITALS (35 sets, daily range): BP systolic 119–170; BP diastolic 63–95
--- NOTE | 2023-11-11 | NUR ---
RESTING IN BED. WATCHING TV. ALERT, ORIENTED TO PERSON PLACE, TIME OF DAY. ABLE TO STATE NAME AND DATE OF . ABLE TO SWALLOW MEDICATION WHOLE. DENIES PAIN OR DISCOMFORT. TURNED AND INC CARE PROVIDED.
--- NOTE | 2023-11-11 05:00 | NUR ---
SLEPT ON AND OFF DURING NIGHT. AWAKENS EASILY WHEN ENTER ROOM. DENIES PAIN. ABLE TO FOLLOW COMMANDS. BED BATH COMPLETED AND LINEN CHANGE. INC CARE PROVIDED.
--- NOTE | 2023-11-11 07:54 | NUR ---
REPORT RECEIVED FROM NIGHT RN. PT HAD NO ISSUES OVERNIGHT. THIS MORNING PT IS A/O. ANSWERING QUESTIONS APPROPRIATELY WITH VERY LITTLE HESITATION. NO APPARENT HALLUCINATIONS AT THIS TIME. PT MOVING ALL EXTREMETIES AND EVEN ASSISTED STAFF TO SIT UP STRAIGHT IN BED FOR ASSESSMENT. PT GIVEN WATER AND ENSURE TO DRINK, SWALLOWING WITHOUT DIFFICULTY AND ABLE TO HOLD CUP AND DRINK WITHOUT ASSISTANCE WHICH IS CHANGE FROM YESTERDAY. LUNG SOUNDS DIMINISHED. PT TAKEN OFF 2LNC AND ON RA; O2SAT 97%. NO COUGH OR SOB NOTED. PT IS NSR ON MONITOR. BS HYPOACTIVE. ABDOMEN SOFT, NON-TENDER. PURWIK IN PLACE. PULSES STRONG ALL EXTREMETIES. SKIN W/D/I. PT DENIES ANY PAIN AT THIS TIME. CALL LIGHT IN REACH. VSS. DR. BRANDT AT BEDSIDE TO ASSESS PT.
--- NOTE | 2023-11-11 08:30 | NUR ---
PHYSICAL THERAPY AT BEDSIDE TO WORK WITH PT. PT ABLE TO STAND AND MOVE FEET. PT THEN REPOSITIONED IN BED.
[2023-11-11] MEDS ORDERED: LOSARTAN Potassium 50 MG/TAB PO SCH (09:00)
[2023-11-11] MEDS ORDERED: PATIENT' OWN MED 1 EA DOSE PO SCH (09:00)
--- NOTE | 2023-11-11 10:00 | NUR ---
MEDICAL DEVICE AT BEDSIDE TO ASSESS PT. NO CHANGES TO PT STATUS. SITTIN UP IN BED. CALL LIGHT IN REACH. VSS.
--- NOTE | 2023-11-11 12:00 | NUR ---
TELE-NEUROLOGY SAW PT EARLIER. PT PARTICIPATED IN EXAM. PT NOW REPOSITIONED IN BED AND IS EATING LUNCH INDEPENDENTLY. CALL LIGHT IN REACH. VSS.
[2023-11-11] MEDS ORDERED: KLONOPIN0.5 MG PO (13:02)
[2023-11-11] MEDS ORDERED: OSELTAMIVIR PHO30 MG PO (13:02)
--- NOTE | 2023-11-11 14:00 | NUR ---
NO CHANGES TO PT STATUS. PT UPDATED ON PLAN OF CARE AND AWARE THAT PLAN IS TO TRANSFER TO SNF THIS EVENING.
--- NOTE | 2023-11-11 16:20 | NUR ---
PT SPOKE WITH HER AUNT ON THE PHONE. PT GAVE NURSE PERMISSION TO TELL HER AUNT WHERE SHE WAS BEING TRANSFERRED TO. PT'S AUNT GIVEN NAME OF FACILITY AND THEIR PHONE NUMBER.
--- NOTE | 2023-11-11 16:30 | NUR ---
CENTRAL LINE REMOVED. PRESSURE BANDAGE APPLIED. PT TOLERATED WELL.
--- NOTE | 2023-11-11 18:20 | NUR ---
PT LEFT BY MEDICAL TRANSPORT TO [facility]. PT IN GOOD CONDITION. ALL BELONGINGS SENT WITH PT INCLUDING PHONE AND PURSE. PT'S AUNT, WHO CALLED EARLIER IS AWARE THAT PT HAS BELONGINGS AND HAS NUMBER OF FACILITY.
== END 2023-11-11 18:15 | DRG 92 ==
LOC: ED 23:46 → ED-I 11-09 07:14 → ED 11-09 08:25 → MS2 11-09 08:26 → ICU 11-09 08:26
PROVIDERS: Emergency Medicine; Nurse Practitioner Family; ADMIT Internal Medicine; ATTEND Internal Medicine
PROC: 02HV33Z Insertion of Infusion Device into Superior Vena Cava, Percutaneous Approach (ICD-10-PCS; principal; 2023-11-09)
DX: G92.8 Other toxic encephalopathy (principal); F31.81 Bipolar II disorder; J44.0 Chronic obstructive pulmonary disease with (acute) lower respiratory infection; T43.505A Adverse effect of unspecified antipsychotics and neuroleptics, initial encounter; J20.9 Acute bronchitis, unspecified; I12.9 Hypertensive chronic kidney disease with stage 1 through stage 4 chronic kidney disease, or unspecified chronic kidney disease; N18.9 Chronic kidney disease, unspecified; F20.9 Schizophrenia, unspecified; J10.1 Influenza due to other identified influenza virus with other respiratory manifestations; E78.5 Hyperlipidemia, unspecified; F17.200 Nicotine dependence, unspecified, uncomplicated; R40.4 Transient alteration of awareness; Z91.51 Personal history of suicidal behavior; Z20.822 Contact with and (suspected) exposure to COVID-19
CPT/HCPCS: J1650; Q9967

== ENCOUNTER 2024-05-13 13:23 | Inpatient (IN) | payer MEDICARE ==
[2024-05-13] VITALS (35 sets, daily range): BP systolic 108–148; BP diastolic 36–88
[~2024-05-13] VITALS: Ht 149.9 cm; Wt 81.8 kg
[~2024-05-13 13:23] MED LIST changes: +CYMBALTA30 MG PO; +OSELTAMIVIR PHO30 MG PO; +TRAZODONE50 MG PO
[2024-05-13 13:51] LABS: BASO% 0.2 % (0-3); EOS% 0.1 % (0-8); HEMATOCRIT 40.6 % (37.0-47.0); HEMOGLOBIN 13.5 g/dl (12.0-16.0); IMMATURE GRANULOCYTES 0.1 % (0.0-5.0); LYMPH% 17.9 % (15-41); MEAN CORPUSCULAR HGB 31.4 pG CALC (26.0-32.0); MEAN CORPUSCULAR HGB CONC 33.3 g/dL CAL (32.0-36.0); MONO% 5.2 % (2-13); NEUT# 8.05 thou/uL (2.00-7.15); NEUT% 76.5 % (42-76); RED BLOOD COUNT 4.3 mill/uL (4.20-5.60); RED CELL DISTRI WIDTH 16.5 % (11.5-15.5)
[2024-05-13 13:56] LABS: MEAN CELL VOLUME 94.4 fL CALC (80.0-100.0)
[2024-05-13 14:18] LABS: ALBUMIN 5.1 g/dL (3.2-5.0); TOTAL PROTEIN 9.6 g/dL (6.3-8.2)
[2024-05-13 14:19] LABS: BILIRUBIN, TOTAL 1.5 mg/dL (0.02-1.3)
[2024-05-13 14:20] LABS: POTASSIUM 3.6 mmol/l (3.5-5.1)
[2024-05-13 14:24] LABS: CREATININE 2.7 mg/dL (0.5-1.0); MAGNESIUM 2.3 mg/dL (1.6-2.3)
[2024-05-13] MEDS ORDERED: SODIUM CHLORIDE 0.9% 1,000 ML IV ONE (14:50)
[2024-05-13] MEDS ORDERED: OSELTAMIVIR PHOSPHATE 75 MG/TAB CAP PO ONE (14:50)
[2024-05-13 18:07] LABS: URINE BLOOD DIPSTICK Negative (NEGATIVE); URINE GLUCOSE - DIPSTICK Negative (NEGATIVE); URINE KETONE 15 mg/dL (NEGATIVE); URINE LEUK ESTERASE Negative (NEGATIVE); URINE NITRITE - DIPSTICK Negative (Negative); URINE PH 5.5 (4.5-8.0); URINE PROTEIN - DIPSTICK 100 mg/dL (NEG-TRACE); URINE SPECIFIC GRAVITY 1.025; URINE UROBILINOGEN - DIPSTICK 0.2 E.U./dL (0.2)
[2024-05-13 18:13] LABS: URINE COLOR Dark yellow
[2024-05-13 18:16] LABS: URINE RBC 0-2 RBC/hpf (0-5); URINE TRANSITIONAL EPI. CELLS FEW hpf; URINE WBC 0-2 WBC/hpf (0-5)
[2024-05-13 18:17] LABS: URINE HYALINE CAST MODERATE lpf (NONE-RARE)
[2024-05-13] MEDS ORDERED: Zaleplon 5 MG/CAP PO PRN (20:15)
[2024-05-13] MEDS ORDERED: ALBUTEROL SULFATE 8 GM INH IN PRN (20:15)
[2024-05-13] MEDS ORDERED: MAGNESIUM HYDROXIDE 30 ML UDC PO PRN (20:15)
[2024-05-13] MEDS ORDERED: ACETAMINOPHEN 325 MG/TAB PO PRN (20:15)
[2024-05-13] MEDS ORDERED: SODIUM CHLORIDE 0.9% 1,000 ML IV PRN (20:20)
[2024-05-13] MEDS ORDERED: GABAPENTIN 300 MG/CAP PO SCH (21:00)
[2024-05-13] MEDS ORDERED: traZODone HCL 50 MG/TAB PO SCH (21:00)
[2024-05-13] MEDS ORDERED: Heparin SODIUM (Porcine) 5,000 UNITS/ML SDV SC SCH (22:00)
[2024-05-14] VITALS (7 sets, daily range): BP systolic 115–170; BP diastolic 56–86
[2024-05-14 06:04] LABS: CHOLESTEROL HDL RATIO 5.3 (<4.4 (CALC)); MAGNESIUM 2.1 mg/dL (1.6-2.3)
[2024-05-14] MEDS ORDERED: amLODIPine BESYLATE 5 MG/TAB PO SCH (09:00)
[2024-05-14] MEDS ORDERED: OSELTAMIVIR PHOSPHATE 30 MG/CAP PO SCH (14:00)
[2024-05-14] MEDS ORDERED: cefTRIAXone SODIUM 2 GM in SODIUM CHLORIDE 0.9% 100 ML IV SCH (17:00)
[2024-05-14] MEDS ORDERED: DOXYCYCLINE HYCLATE 100 MG in SODIUM CHLORIDE 0.9% 100 ML IV SCH (17:00)
[2024-05-14] MEDS ORDERED: ATORVASTATIN CALCIUM 20 MG/TAB PO SCH (21:00)
[2024-05-15] VITALS (8 sets, daily range): BP systolic 119–154; BP diastolic 60–77
[2024-05-15 04:51] LABS: BASO% 0.1 % (0-3); EOS% 0.2 % (0-8); IMMATURE GRANULOCYTES 0.1 % (0.0-5.0); LYMPH% 27.8 % (15-41); MEAN CELL VOLUME 94.9 fL CALC (80.0-100.0); MEAN CORPUSCULAR HGB 31.6 pG CALC (26.0-32.0); MEAN CORPUSCULAR HGB CONC 33.3 g/dL CAL (32.0-36.0); MONO% 6.3 % (2-13); NEUT# 7.21 thou/uL (2.00-7.15); NEUT% 65.5 % (42-76); RED BLOOD COUNT 2.97 mill/uL (4.20-5.60); RED CELL DISTRI WIDTH 16.3 % (11.5-15.5)
[2024-05-15 05:00] LABS: HEMATOCRIT 28.2 % (37.0-47.0); HEMOGLOBIN 9.4 g/dl (12.0-16.0)
[2024-05-15 06:09] LABS: MAGNESIUM 2.1 mg/dL (1.6-2.3)
[2024-05-15 06:20] LABS: ALBUMIN 3.3 g/dL (3.2-5.0); BILIRUBIN, TOTAL 0.8 mg/dL (0.02-1.3); CREATININE 1.5 mg/dL (0.5-1.0); POTASSIUM 2.6 mmol/l (3.5-5.1); TOTAL PROTEIN 6.4 g/dL (6.3-8.2)
[2024-05-15] MEDS ORDERED: DOXYCYCLINE HYCLATE 100 MG in SODIUM CHLORIDE 0.9% 100 ML IV SCH (17:00)
[2024-05-15] MEDS ORDERED: cefTRIAXone SODIUM 2 GM in SODIUM CHLORIDE 0.9% 100 ML IV SCH (18:00)
[2024-05-15] MEDS ORDERED: OSELTAMIVIR PHOSPHATE 30 MG/CAP PO SCH (21:00)
[2024-05-16 04:00] VITALS: BP 126/70
[2024-05-16 05:30] LABS: BASO% 0.4 % (0-3); EOS% 5.3 % (0-8); HEMOGLOBIN 9.5 g/dl (12.0-16.0); IMMATURE GRANULOCYTES 0.1 % (0.0-5.0); MEAN CORPUSCULAR HGB 31.8 pG CALC (26.0-32.0); MEAN CORPUSCULAR HGB CONC 32.8 g/dL CAL (32.0-36.0); MONO% 6.6 % (2-13); NEUT# 4.91 thou/uL (2.00-7.15); NEUT% 58.6 % (42-76); RED BLOOD COUNT 2.99 mill/uL (4.20-5.60); RED CELL DISTRI WIDTH 16.3 % (11.5-15.5)
[2024-05-16 05:36] LABS: ALBUMIN 3.1 g/dL (3.2-5.0); BILIRUBIN, TOTAL 0.7 mg/dL (0.02-1.3); CREATININE 1.1 mg/dL (0.5-1.0); MAGNESIUM 1.9 mg/dL (1.6-2.3); POTASSIUM 2.6 mmol/l (3.5-5.1); TOTAL PROTEIN 6.1 g/dL (6.3-8.2)
[2024-05-16 07:20] VITALS: BP 127/68
[2024-05-16] MEDS ORDERED: POTASSIUM CHLORIDE 20MEQ 100 ML IV SCH (08:00)
[2024-05-16 09:54] VITALS: BP 127/68
[2024-05-16] MEDS ORDERED: OSELTAMIVIR PHO30 MG PO (10:49)
== END 2024-05-16 17:14 | DRG 71 ==
LOC: ED 13:23 → ED-I 16:30 → ED 18:21 → MS2 18:22
PROVIDERS: Internal Medicine; Nurse Practitioner; ADMIT Internal Medicine; ATTEND Internal Medicine
DX: G93.49 Other encephalopathy (principal); F31.81 Bipolar II disorder; N17.9 Acute kidney failure, unspecified; J10.1 Influenza due to other identified influenza virus with other respiratory manifestations; I12.9 Hypertensive chronic kidney disease with stage 1 through stage 4 chronic kidney disease, or unspecified chronic kidney disease; N18.9 Chronic kidney disease, unspecified; D64.9 Anemia, unspecified; E87.6 Hypokalemia; F20.9 Schizophrenia, unspecified; E78.5 Hyperlipidemia, unspecified; F17.200 Nicotine dependence, unspecified, uncomplicated; Z20.822 Contact with and (suspected) exposure to COVID-19
CPT/HCPCS: J0696; J1644; J3480